=== PATIENT | female | born 1970 | race Caucasian/White ===

== ENCOUNTER → 2020-01-11 11:03 | Outpatient (CLI) | payer BC, SELFPAY ==
--- NOTE | ~2020-01-11 | US_ITS ---
EXAMINATION: US thyroid DATE: 01/11/2020 11:21 INDICATION: Micah's thyroiditis. TECHNIQUE: Multiple ultrasound images of the thyroid were obtained. COMPARISON: None. FINDINGS: The right thyroid lobe measures 1.8 x 0.7 x 0.6 cm. The left thyroid lobe measures 1.8 x 0.6 x 0.6 c m. Thyroid isthmus measures 1 mm in thickness. No discrete nodules identified. IMPRESSION: 1. Diffusely atrophic thyroid which could represent sequela of chronic thyroiditis. Reviewed, dictated and finalized at location A. IMPRESSION: 1. Diffusely atrophic thyroid which could represent sequela of chronic thyroidi tis.
== END ==
PROVIDERS: PCP Family Medicine; Visit Provider Family Medicine
DX: E06.3 Autoimmune thyroiditis (principal)
CPT/HCPCS: 76536

== ENCOUNTER → 2021-06-12 13:12 | Outpatient (CLI) | payer BC, SELFPAY ==
--- NOTE | ~2021-06-12 | XR_ITS ---
EXAMINATION: XR chest 2V EXAM DATE: 06/12/2021 13:57 INDICATION: R05.9 - Cough, unspecified. Coughing for years but Hemoptysis last week. TECHNIQUE: Frontal and lateral projections of the chest obtained and reviewed. There is no prior zara dy for comparison. FINDINGS: The lungs are clear. There are no pleural effusions. The cardiomediastinal silhouette is within normal limits. There is no pneumothorax suspected. The bones and soft tissues are unremarkab le. IMPRESSION: No acute cardiopulmonary findings. Reviewed, dictated and finalized at location A. [employer]SULTANT
== END ==
PROVIDERS: PCP Family Medicine; Visit Provider Family Medicine
DX: R05.9 Cough, unspecified (principal)
CPT/HCPCS: 71046

== ENCOUNTER → 2021-09-05 13:46 | Outpatient (CLI) | payer BC, SELFPAY ==
--- NOTE | ~2021-09-05 | XR_ITS ---
EXAMINATION: XR knee RT 3V DATE: 09/05/2021 13:57 INDICATION: Right knee pain TECHNIQUE: Three views of the right knee were obtained. COMPARISON: 04/08/2018 FINDINGS: Alignment is normal. No fracture or osteochondral lesion. There is mild tricompartmental os teoarthritis characterized by tiny marginal osteophytes. No joint effusion/synovitis. Soft tissues a re unremarkable. IMPRESSION: 1. No acute osseous abnormality. Reviewed, dictated and finalized at location A. P[employer]ER [employer]
== END ==
PROVIDERS: Visit Provider Nurse Practitioner Family
DX: M25.561 Pain in right knee (principal)
CPT/HCPCS: 73562

== ENCOUNTER → 2021-12-28 12:11 | Outpatient (CLI) | payer BC, SELFPAY ==
--- NOTE | ~2021-12-28 | XR_ITS ---
EXAMINATION: XR chest 2V 12/28/2021 12:22 INDICATION: Cough PROCEDURE: 2 view chest COMPARISON: 09/19/2021 FINDINGS: The lungs are clear. The cardiomediastinal silhouette is within normal limits. There are no pleural effusions. There is no pneumothorax suspected. IMPRESSION: 1: NO ACUTE CARDIOPULMONARY DISEASE. Reviewed, dictated and finalized at location B.
== END ==
PROVIDERS: PCP Family Medicine; Visit Provider Nurse Practitioner Family
DX: R05.9 Cough, unspecified (principal)
CPT/HCPCS: 71046

== ENCOUNTER 2022-01-01 10:32 | Outpatient (CLI) | payer BC, SELFPAY | END 2022-01-01 10:33 | disposition home or self-care (01) | LOC: ANHLAB 10:33 | PROVIDERS: PCP Family Medicine; Visit Provider Family Medicine | DX: J40 Bronchitis, not specified as acute or chronic (principal) | CPT/HCPCS: 87070; 87205 ==

== ENCOUNTER 2025-03-23 11:40 | Outpatient (CLI) | payer BC, SELFPAY ==
--- NOTE | ~2025-03-23 | XR_ITS ---
EXAMINATION: XR chest 2V 03/23/2025 12:04 INDICATION: Chronic cough PROCEDURE: 2 view chest COMPARISON: 12/28/2021 FINDINGS: The lungs are clear. The cardiomediastinal silhouette is within normal limits. There are no pleural effusions. There is no pneumothorax suspected. IMPRESSION: 1: NO ACUTE CARDIOPULMONARY DISEASE. Reviewed, dictated and finalized at location O.
== END 2025-03-23 11:41 | disposition home or self-care (01) ==
PROVIDERS: PCP Family Medicine; Visit Provider Nurse Practitioner Adult Health
DX: R05.3 Chronic cough (principal)
CPT/HCPCS: 71046